=== PATIENT | female | born 1995 | race Two or more races ===

== ENCOUNTER 2017-03-03 12:05 | Emergency (ER) | payer SELFPAY ==
[2017-03-03 13:18] LABS: BILIRUBIN,URINE SMALL (NEG); GLUCOSE,URINE NEGATIVE (NEG)
[2017-03-03 13:19] LABS: BACTERIA,URINE MODERATE /HPF (0-FEW); NITRITE,URINE NEGATIVE (NEG); PROTEIN,URINE 30 mg/dL (NEG-TRACE); RBC,URINE OCC /HPF (0-2); SQUAMOUS EPITHELIAL CELL,UR MANY /LPF
[2017-03-03] MEDS: IV NORMAL SALINE 1000ML BAG 1,000 ML IV ONE (13:22)
[2017-03-03] MEDS: ONDANSETRON PF 4 MG/2 ML VIAL. IV ONE (13:22)
[2017-03-03 13:34] LABS: BASO % 0 % (0-3); EOS % 1 % (0-3); HEMATOCRIT 41.4 % (36.0-47.0); HEMOGLOBIN 13.9 g/dL (12.0-15.5); LYMPH # 2.1 x10^3/uL (1.0-4.8); LYMPH % 27 % (24-48); MEAN CORPUSCULAR HEMOGLOBIN 25 pg (25-35); MEAN CORPUSCULAR HGB CONC 34 g/dL (31-37); MEAN CORPUSCULAR VOLUME 76 fL (79-100); MONO % 8 % (0-9); NEUT % 65 % (31-73); PLATELET COUNT 180 x10^3/uL (140-400); RED BLOOD COUNT 5.48 x10^6/uL (3.50-5.40); RED CELL DISTRIBUTION WIDTH 12.7 % (11.5-14.5)
[2017-03-03 13:59] LABS: CALCIUM 10.2 mg/dL (8.5-10.1); CREATININE 0.6 mg/dL (0.6-1.0); POTASSIUM 3.6 mmol/L (3.5-5.1)
[2017-03-03 14:05] LABS: ALBUMIN 4.4 g/dL (3.4-5.0); ALBUMIN/GLOBULIN RATIO 0.9 (1.0-1.7); TOTAL BILIRUBIN 0.7 mg/dL (0.2-1.0); TOTAL PROTEIN 9.4 g/dL (6.4-8.2)
--- NOTE | 2017-03-03 14:10 | ED.ADGEN ---
Past Medical History Past Medical History: No Pertinent History Alcohol Use: None Drug Use: None Adult General Chief Complaint Chief Complaint: VOMITING IN HPI HPI Patient is a 21 year old woman, , who believes she is about 3 months , who presents to the emergency department with a complaint of worsening nausea, vomiting, and abdominal pain area patient states that she's been having intermittent episodes since she first that she is , which was sometime last month, his her last missed her period was in December. She denies any weakness, nose or tingling, any chest pain or shortness breath, any back pain, any urinary complaints. States she is having cramping and tenderness in her lower abdomen and also in her epigastric region. No blood or bile in her emesis. No diarrhea, states she is having some constipation. Denies any injuries , any travel or surgeries, any history of infections or concerns for STI. Patient has an appointment to see her OB for the first time on March 08. She is not previously been seen by OB for this . Denies any other medical history. Positive test upon arrival to the emergency department. Review of Systems Review of Systems Constitutional: Denies fever or chills. [] Eyes: Denies change in visual acuity. [] HENT: Denies nasal congestion or sore throat. [] Respiratory: Denies cough or shortness of breath. [] Cardiovascular: Denies chest pain or edema. [] GI: Upper and lower abdominal pain and cramping, nausea, vomiting, no bloody stools or diarrhea. : Denies dysuria. [] Musculoskeletal: Denies back pain or joint pain. [] Integument: Denies rash. [] Neurologic: Denies headache, focal weakness or sensory changes. [] Endocrine: Denies polyuria or polydipsia. [] Lymphatic: Denies swollen glands. [] Psychiatric: Denies depression or anxiety. [] Current Medications Current Medications Current Medications Medications (Trade) Dose Ordered Sig/David Start Time Stop Time Status Last Admin Dose Admin Cephalexin HCl (Keflex) 500 mg 1X ONCE 03/03/17 16:30 03/03/17 16:31 DC 03/03/17 16:43 500 MG Dextrose/Sodium Chloride 500 ml @ 0 mls/hr 1X ONCE 03/03/17 14:00 03/03/17 14:02 DC 03/03/17 14:51 500 MLS/HR Metronidazole (Flagyl) 500 mg 1X ONCE 03/03/17 16:30 03/03/17 16:31 DC 03/03/17 16:43 500 MG Ondansetron HCl (Zofran) 4 mg 1X ONCE 03/03/17 13:15 03/03/17 13:16 DC 03/03/17 13:22 4 MG Sodium Chloride 1,000 ml @ 1,000 mls/hr 1X ONCE 03/03/17 13:15 03/03/17 14:14 DC 03/03/17 13:22 1,000 MLS/HR Allergies Allergies Allergies Coded Allergies Type Severity Reaction Last Updated Verified No Known Drug Allergies 03/03/17 No Physical Exam Physical Exam Constitutional: Well developed, well nourished, no acute distress, non-toxic appearance. [] HENT: Normocephalic, atraumatic, bilateral external ears normal, oropharynx moist, no oral exudates, nose normal. [] Eyes: PERRLA, EOMI, conjunctiva normal, no discharge. [] Neck: Normal range of motion, no tenderness, supple, no stridor. [] Cardiovascular:Heart rate regular rhythm, no murmur , S1, S2, no rubs or gallops.[] Lungs & Thorax: Bilateral breath sounds clear to auscultation, no wheezing, rhonchi, rales. No chest wall crepitus or tenderness. [] Abdomen: Bowel sounds normal, soft, tenderness palpation in the epigastric region, also in the pelvic region, no rebound or rigidity, no guarding, no masses, no pulsatile masses. [] Skin: Warm, dry, no erythema, no rash. [] Back: No tenderness, no CVA tenderness. [] Extremities: No tenderness, no cyanosis, no clubbing, ROM intact, no edema. Negative Homans sign. Neurologic: Alert and oriented X 3, normal motor function, normal sensory function, no focal deficits noted. [] Psychologic: Affect normal, judgement normal, mood normal. [] Pelvic examination: Patient with normal-appearing external examination. Bimanual examination reveals a closed os, without any CMT adnexal masses noted, mild general tenderness. Speculum examination reveals an appropriate-appearing cervix, engorged, with a very small amount of white discharge, no bleeding, no masses, no lesions or other abnormalities identified. Speculum examination performed without issue, specimens taken without issue. Current Patient Data Vital Signs Vital Signs Date Time Temp Pulse Resp B/P (MAP) Pulse Ox O2 Delivery O2 Flow Rate FiO2 03/03/17 12:27 98.3 81 16 131/73 (92) 99 Room Air 98.3 Lab Values Laboratory Tests Test 03/03/17 12:40 03/03/17 12:42 03/03/17 13:19 03/03/17 13:25 Urine Collection Type Unknown Urine Color Tia Urine Clarity Cloudy Urine pH 6.0 Urine Specific [place] >=1.030 Urine Protein 30 mg/dL (NEG-TRACE) Urine Glucose (UA) Negative mg/dL (NEG) Urine Ketones (Stick) 80 mg/dL (NEG) Urine Blood Negative (NEG) Urine Nitrite Negative (NEG) Urine Bilirubin Small (NEG) Urine Urobilinogen Dipstick 1.0 mg/dL (0.2 mg/dL) Urine Leukocyte Esterase Small (NEG) Urine RBC Occ /HPF (0-2) Urine WBC 5-10 /HPF (0-4) Urine Squamous Epithelial Cells Many /LPF Urine Bacteria Moderate /HPF (0-FEW) Urine Mucus Marked /LPF POC Urine HCG, Qualitative Hcg positive (Negative) Maternal Serum HCG Beta Subunit 38295 mIU/mL (0-5) H White Blood Count 8.0 x10^3/uL (4.0-11.0) Red Blood Count 5.48 x10^6/uL (3.50-5.40) H Hemoglobin 13.9 g/dL (12.0-15.5) Hematocrit 41.4 % (36.0-47.0) Mean Corpuscular Volume 76 fL (79-100) L Mean Corpuscular Hemoglobin 25 pg (25-35) Mean Corpuscular Hemoglobin Concent 34 g/dL (31-37) Red Cell Distribution Width 12.7 % (11.5-14.5) Platelet Count 180 x10^3/uL (140-400) Neutrophils (%) (Auto) 65 % (31-73) Lymphocytes (%) (Auto) 27 % (24-48) Monocytes (%) (Auto) 8 % (0-9) Eosinophils (%) (Auto) 1 % (0-3) Basophils (%) (Auto) 0 % (0-3) Neutrophils # (Auto) 5.2 x10^3uL (1.8-7.7) Lymphocytes # (Auto) 2.1 x10^3/uL (1.0-4.8) Monocytes # (Auto) 0.6 x10^3/uL (0.0-1.1) Eosinophils # (Auto) 0.1 x10^3/uL (0.0-0.7) Basophils # (Auto) 0.0 x10^3/uL (0.0-0.2) Sodium Level 135 mmol/L (136-145) L Potassium Level 3.6 mmol/L (3.5-5.1) Chloride Level 98 mmol/L (98-107) Carbon Dioxide Level 26 mmol/L (21-32) Anion Gap 11 (6-14) Blood Urea Nitrogen 7 mg/dL (7-20) Creatinine 0.6 mg/dL (0.6-1.0) Estimated GFR (Cockcroft-Gault) 125.0 BUN/Creatinine Ratio 12 (6-20) Glucose Level 91 mg/dL (70-99) Calcium Level 10.2 mg/dL (8.5-10.1) H Total Bilirubin 0.7 mg/dL (0.2-1.0) Aspartate Amino Transferase (AST) 78 U/L (15-37) H Alanine Aminotransferase (ALT) 144 U/L (14-59) H Alkaline Phosphatase 107 U/L (46-116) Total Protein 9.4 g/dL (6.4-8.2) H Albumin 4.4 g/dL (3.4-5.0) Albumin/Globulin Ratio 0.9 (1.0-1.7) L Lipase 97 U/L (73-393) Laboratory Tests 03/03/17 13:25 Laboratory Tests 03/03/17 13:25 Microbiology 03/03/17 Wet Prep - Final, Complete EKG EKG Not indicated.[] Radiology/Procedures Radiology/Procedures [][facility] [address] [place] [address] IMAGING REPORT Signed PATIENT: DIVYA RUIZ ACCOUNT: [id number] : 1995 LOCATION: ER AGE: 21 SEX: F EXAM STATUS: REG ER ORD. PHYSICIAN: REYES MEDEL DO REASON: + preg/abd pain/n/v PROCEDURE: OB < 14 WKS OB ultrasound dated 03/03/2017. No comparison available. Clinical indication: Abdominal pain with . FINDINGS: Gestational sac and pole identified within the endometrial canal. The crown-rump length measures 2.7 cm, correlating with a 9 week 4 day gestation. Estimated sonographic date of delivery of 10/02/2017. No subchorionic collection. Yolk sac is not visualized. heart rate 175 bpm. Right ovary measures 2.4 x 1.6 x 2.1 cm. Left ovary measures 3.1 x 2.0 x 3.1 cm. No adnexal mass or free fluid. IMPRESSION: Single viable intrauterine gestation with estimated sonographic gestational age of 9 weeks 4 days. No acute findings. Electronically signed by: Ian Argueta MD (03/03/2017 3:49 PM) [facility] [place] and SIGNED BY: IAN ARGUETA MD DATE: 03/03/17 1548 CC: REYES MEDEL DO; NON,STAFF ~ Course & Med Decision Making Course & Med Decision Making Pertinent Labs and Imaging studies reviewed. (See chart for details) Patient resting comfortably, with no emesis in the ED, is complaining of nausea. She is primarily Portuguese-speaking, and translation is assisted via phone application. Pelvic examination reveals a closed os, with a small amount of white discharge, no CMT. Laboratory studies are unremarkable aside from a urinary tract infection noted, and clue cells consistent with atrial vaginosis on wet prep. Ultrasound obtained, reveals a 9 week 4 day , single intrauterine, printed out copies of ultrasound provider to patient. Patient with no further emesis in the ED, nausea controlled after receiving IV fluids and Zofran, patient tolerating first dose of metronidazole and Keflex in the ED without issue. Patient has an appointment to follow-up with her OB on March 08. Patient informed that she is a culture pending, she'll need to follow-up with her primary care provider for test of cure, she was also given clear and detailed return instructions via internet architect application which she voiced understanding and agreement. Patient is also given dietary recommendations, along with prescription for Keflex and metronidazole, discharged home with Portuguese instructions for both threaten miscarriage in first Dr. , abdominal pain and , UTI mitral vaginosis, with clear and detailed return instructions as stated. Elainaon Disclaimer Dragon Disclaimer This electronic medical record was generated, in whole or in part, using a voice recognition dictation system. Departure Impression: Primary Impression: Abdominal pain during in first trimester Additional Impressions: Bacterial vaginosis Urinary tract infection Disposition: 01 HOME, SELF-CARE Condition: IMPROVED Scripts Ondansetron Hcl (ZOFRAN) 4 Mg Tablet 4 MG PO PRN Q8HRS Y for NAUSEA/VOMITING, #12 TAB Prov: REYES MEDEL DO 03/03/17 Cephalexin (KEFLEX) 500 Mg Capsule 1 CAP PO BID, #14 CAP Prov: REYES MEDEL DO 03/03/17 Metronidazole (METRONIDAZOLE) 500 Mg Tablet 1 TAB PO BID, #14 TAB Prov: REYES MEDEL DO 03/03/17 Problem Qualifiers REYES MEDEL DO Mar 03, 2017 14:10
[2017-03-03] MEDS: IV DEXTROSE 5 %-0.45 % NACL 500 ML IV ONE (14:51)
--- NOTE | 2017-03-03 15:53 | RAD ---
OB ultrasound dated 03/03/2017. No comparison available. Clinical indication: Abdominal pain with . FINDINGS: Gestational sac and pole identified within the endometrial canal. The crown-rump length measures 2.7 cm, correlating with a 9 week 4 day gestation. Estimated sonographic date of delivery of 10/02/2017. No subchorionic collection. Yolk sac is not visualized. heart rate 175 bpm. Right ovary measures 2.4 x 1.6 x 2.1 cm. Left ovary measures 3.1 x 2.0 x 3.1 cm. No adnexal mass or free fluid. IMPRESSION: Single viable intrauterine gestation with estimated sonographic gestational age of 9 weeks 4 days. No acute findings. Electronically signed by: Ian Argueta MD (03/03/2017 3:49 PM) [facility] [place]
[2017-03-03 16:30] VITALS: BP 117/63
[2017-03-03] MEDS: metroNIDAZOLE 500 MG TABLET PO ONE (16:43)
[2017-03-03] MEDS: CEPHALEXIN 250 MG CAPSULE. PO ONE (16:43)
[2017-03-03] MEDS ORDERED: CEPH-264 PO (16:52)
[2017-03-03] MEDS ORDERED: METR500T8 PO (16:52)
[2017-03-03] MEDS ORDERED: ONDA4TAB7 PO (16:55)
== END 2017-03-03 17:15 | disposition home or self-care (01) ==
LOC: ER 12:05
DX: O23.41 Unspecified infection of urinary tract in pregnancy, first trimester (principal); O23.591 Infection of other part of genital tract in pregnancy, first trimester; N76.0 Acute vaginitis; B96.89 Other specified bacterial agents as the cause of diseases classified elsewhere; Z3A.12 12 weeks gestation of pregnancy
CPT/HCPCS: 36415; 76801; 80053; 81001; 81025; 83690; 84702; 85025; 87086; 87491; 87591; 96361; 96374; 99285; J2405; J7030; Q0111

== ENCOUNTER 2017-07-06 11:54 | Observation (INO) | payer SELFPAY ==
[2017-07-06] MEDS ORDERED: IV RINGERS,LACTATED 1000ML 1,000 ML IV (15:05)
== END 2017-07-06 14:30 | disposition home or self-care (01) ==
LOC: 3 SO LND 11:54
DX: O26.892 Other specified pregnancy related conditions, second trimester (principal); R10.9 Unspecified abdominal pain; M54.9 Dorsalgia, unspecified; Z3A.27 27 weeks gestation of pregnancy
CPT/HCPCS: G0378; G0379